=== PATIENT | male | born 1970 | race African-American/Black ===

== ENCOUNTER 2024-08-15 11:16 | Day surgery (SDC) | payer BC ==
[2024-08-15 11:43] LABS: Absolute Eosinophils 0.2 K/uL (0-0.5); Absolute Lymphocytes (CBC) 1.8 K/uL (0.7-4.9); Absolute Monocytes 0.4 K/uL (0.1-1.3); Absolute Neutrophil 2.6 K/uL (1.8-8.0); Basophils % 0.6 % (0-1.3); Hematocrit 38.8 % (39.6-49.0); Hemoglobin 12.6 g/dL (13.6-17.9); Lymphocytes % 36.1 % (15.3-44.8); MCH 23.9 pg (27.0-35.0); MCHC 32.5 g/dL (32.0-36.0); MCV 73.3 fL (80-100); MPV 7.2 fL (7.6-11.3); Monocytes % 8.4 % (3.3-12.3); Neutrophils % 51.9 % (41.7-73.7); Platelets 308 thou/uL (152-406); RBC Red Blood Cell Count 5.29 M/uL (4.33-5.43); Red Cell Distribution Width 15.5 % (12.1-15.2)
[2024-08-15 11:50] LABS: PT Prothrombin Time 13.3 SECONDS (10.0-13.0); PTT, Activated Partial Thromb 37.6 SECONDS (24.3-36.9); Protime INR 1.18
[2024-08-15 11:58] LABS: Anion Gap 9.1 mEq/L (5.0-15.0); Potassium 4.1 mEq/L (3.5-5.1)
[2024-08-15] MEDS: Ringers Lactate 1,000 ML IV ONE (12:30)
[2024-08-15] MEDS ORDERED: propofoL 200 MG/20 ML VIAL IV ONE (13:12)
[2024-08-15] MEDS ORDERED: LIDOCAINE 1% MPF 5 ML VIAL ONE (13:15)
[2024-08-15 14:33] VITALS: BP 120/78; TEMP 98; O2SAT 96
--- NOTE | 2024-08-16 16:47 | EKG ---
Test Date: 2024-08-15 Test Time: 12:49:25 Product Handler: NEVAEH MEASUREMENT RESULTS: Intervals: Rate: 60 [place]: 154 QRSD: 82 QT: 410 QTc: 410 [place]: P: 40 [place]: 154 QRS: 12 T: 24 INTERPRETIVE STATEMENTS: Normal sinus rhythm Normal ECG No previous ECG available for comparison Electronically Signed On 08-16-24 16:44:11 ASSEMBLY DETAILER by Emiliano Mitchell
== END 2024-08-15 14:24 | disposition home or self-care (01) ==
LOC: OR 11:16
PROVIDERS: ATTEND Surgery
PROC: 0DJD8ZZ Inspection of Lower Intestinal Tract, Via Natural or Artificial Opening Endoscopic (ICD-10-PCS; principal; 2024-08-15 14:00)
DX: Z12.11 Encounter for screening for malignant neoplasm of colon (principal); K64.8 Other hemorrhoids; I10 Essential (primary) hypertension; E78.00 Pure hypercholesterolemia, unspecified
CPT/HCPCS: 85025; 80048; 36415; 85610; 85730; 45378; J2704; J2003; J7120; 93005